=== PATIENT | male | born 1965 | race Two or more races ===

== ENCOUNTER 2022-01-20 10:08 | Outpatient (CLI) | payer OTHER | END 2022-01-20 23:59 | disposition home or self-care (01) | LOC: LAB 10:08 | PROVIDERS: ATTEND Specialist | DX: Z01.812 Encounter for preprocedural laboratory examination (principal); Z20.822 Contact with and (suspected) exposure to COVID-19 | CPT/HCPCS: U0003; C9803 ==

== ENCOUNTER 2022-01-25 05:12 | Day surgery (SDC) | payer OTHER ==
[~2022-01-25] VITALS: Ht 175.3 cm; Wt 77.1 kg
[~2022-01-25 05:12] MED LIST: ANESTHESIA TRAY IN PYXIS 1 EA TRAY MC ONE
--- NOTE | 2022-01-25 06:09 | NUR ---
RN NOTES PT LEFT AT APPROXIMATELY 0605 TO SURGICAL PROCEDURE.
[2022-01-25] MEDS ORDERED: MIDAZOLAM HCL 2 MG/2ML VIAL ONE (06:17)
[2022-01-25] MEDS ORDERED: FENTANYL PF 100MCG/2ML AMPUL ONE (06:17)
[2022-01-25] MEDS ORDERED: ROCURONIUM BROMIDE 50 MG/5 ML ONE ×2 (06:17→07:30)
[2022-01-25] MEDS ORDERED: BUPIVACAINE 0.5 % PF 150 MG/30 ML VIAL ONE ×2 (06:18→07:11)
[2022-01-25] MEDS ORDERED: LIDOCAINE HCL/MPF 1% 30 ML VIAL IJ ONE (06:18)
[2022-01-25 06:43] VITALS: BP 123/80
[2022-01-25] MEDS ORDERED: CLINDAMYCIN 900 MG/6 ML VIAL ONE (06:45)
[2022-01-25] MEDS ORDERED: TRANEXAMIC ACID 3,000 MG in SODIUM CHLORIDE IRRIG SOLUTION 70 ML IR ONE (07:00)
[2022-01-25] MEDS ORDERED: POLYMYXIN B SULFATE 500,000 UNITS ONE (07:30)
--- NOTE | 2022-01-25 07:45 | NUR ---
RN NOTE Patient in surgery at the moment.
[2022-01-25] MEDS ORDERED: IV D5/0.45 NACL 1,000 ML IV PRN (09:00)
[2022-01-25] MEDS ORDERED: DOCUSATE SODIUM 250 MG CAPSULE PO PRN (09:00)
[2022-01-25] MEDS ORDERED: ONDANSETRON HCL/PF 4 MG/2 ML VIAL IVP PRN (09:00)
[2022-01-25] MEDS ORDERED: ACETAMINOPHEN 325 MG TABLET PO PRN (09:00)
[2022-01-25] MEDS ORDERED: HYDROCODONE/APAP 5/325MG TABLET PO PRN (09:00)
--- NOTE | 2022-01-25 09:30 | NUR ---
RN NOTE Patient brought back to room 306-2 s/p Arthrotomy of the right shoulder with a reverse total shoulder arthroplasty. Surgical dressing c/d/i. VS taken as follows: 116/66, Hr 71, RR 18, SPO2 98% on RA, Temp 97.3. Will continue to monitor.
--- NOTE | 2022-01-25 09:45 | NUR ---
RN NOTE Patient remains stable with VS: 118/66, HR 72, RR 17, SPO2 98% on RA, Temp 97.8. Will continue to monitor.
[2022-01-25] MEDS ORDERED: HYDR12.55 PO (09:58)
[2022-01-25] MEDS ORDERED: AMLO-213 PO (09:58)
[2022-01-25] MEDS ORDERED: LOSA25TA27 PO (09:58)
[2022-01-25] MEDS ORDERED: NAPR-1009 PO (09:58)
[2022-01-25] MEDS ORDERED: LANS15CA13 PO (09:58)
--- NOTE | 2022-01-25 10:00 | NUR ---
RN NOTE Patient remains stable with VS: 106/65, HR 63, RR 19, SPO2 98% on RA, Temp 98.2. Will continue to monitor.
--- NOTE | 2022-01-25 10:15 | NUR ---
RN NOTE Patient remains stable with VS: 108/65, HR 65, RR 19, SPO2 98% on RA, Temp 98.4. Will continue to monitor.
[2022-01-25] MEDS ORDERED: CLONIDINE HCL 0.1 MG TABLET PO PRN (10:30)
[2022-01-25] MEDS ORDERED: MAG HYDROX/AL HYDROX/SIMETH 30 ML UDC PO PRN (10:30)
[2022-01-25] MEDS ORDERED: diphenhydrAMINE HCL 25 MG CAPSULE PO PRN (10:30)
[2022-01-25] MEDS ORDERED: ONDANSETRON HCL/PF 4 MG/2 ML VIAL IV PRN (10:30)
[2022-01-25] MEDS ORDERED: MAGNESIUM HYDROXIDE 30 ML UDC PO PRN (10:30)
[2022-01-25] MEDS ORDERED: oxyCODONE IR immediate release 5 MG PO PRN ×2 (10:30)
[2022-01-25] MEDS ORDERED: HYDROMORPHONE 1 MG/1 ML DISP.SYRIN IJ PRN (10:30)
--- NOTE | 2022-01-25 10:30 | NUR ---
RN NOTE Patient remains stable with VS: 106/68, HR 78, RR 20, SPO2 100% on RA, Temp 98.3. Will continue to monitor.
[2022-01-25] MEDS ORDERED: oxyCODONE IR immediate release 5 MG PO ONE (11:38)
[2022-01-25] MEDS ORDERED: TAMSULOSIN 0.4 MG CAP.SR.24H PO ONE (11:38)
[2022-01-25] MEDS ORDERED: MENTHOL/CETYLPYRD (CEPACOL) 1 LOZ LOZENGE PO ONE (11:47)
[2022-01-25] MEDS ORDERED: MENTHOL/CETYLPYRD (CEPACOL) 1 LOZ LOZENGE PO PRN (12:00)
[2022-01-25] MEDS ORDERED: CLINDAMYCIN 600 MG in IV D5W 50 ML IV SCH (13:00)
--- NOTE | 2022-01-25 15:27 | NUR ---
DENIZ BRENNER DISCHARGE NOTE Received order for discharge. Patient is alert and oriented x 4, needs attended. Patient is medically stable, breathing evenly in room air and no signs of distress noted. Administered prescribed medications. Discharge instructions provided to patient and and both verbalized understanding. IV access removed, catheter tip was intact, pressure dressing applied. Patient left in stable condition via private car with present.
[2022-01-25] MEDS ORDERED: LOSARTAN POTASSIUM 25 MG TABLET PO SCH (17:00)
[2022-01-25] MEDS ORDERED: DOCUSATE SODIUM 100 MG CAPSULE PO SCH (17:00)
[2022-01-25] MEDS ORDERED: FAMOTIDINE (20 MG) 20 MG TABLET PO SCH (21:00)
[2022-01-25] MEDS ORDERED: BISACODYL SUPP (10 MG) 10 MG/SUPP.RECT SUPP.RECT RC PRN (22:00)
[2022-01-25] MEDS ORDERED: ZOLPIDEM TARTRATE 5 MG TABLET PO PRN (22:00)
[2022-01-25] MEDS ORDERED: SENNOSIDES 8.6 MG TABLET PO PRN (22:00)
[2022-01-25] MEDS ORDERED: TAMSULOSIN 0.4 MG CAP.SR.24H PO SCH (22:00)
[2022-01-26] MEDS ORDERED: ASPIRIN 325 MG TABLET PO SCH (09:00)
== END 2022-01-25 18:00 | disposition home or self-care (01) ==
LOC: DS 05:12 → MED 05:13 → UNDOADMIN 05:13 → UNDODISIN 14:50 → DS 18:00
PROVIDERS: ATTEND Specialist
DX: M19.011 Primary osteoarthritis, right shoulder (principal); I10 Essential (primary) hypertension; Z79.899 Other long term (current) drug therapy
CPT/HCPCS: 23472; 87081; 23430; J3490 ×8; J1100; J2704; J3010; J2765; J0330; J2405; J7060; J7030; J7050; A4217; J2250; A4565; C1776; 88305-TC; 88311-TC; G0378